=== PATIENT | male | born 1975 | race Caucasian/White ===

== ENCOUNTER → 2019-08-30 17:35 | Outpatient (CLI) | payer MEDICARE, OTHER, SELFPAY ==
--- NOTE | 2019-08-30 | DI.MRI.S_ITS ---
PROCEDURE: MR HEAD/BRAIN WO CON INDICATIONS: Other fatigue TECHNIQUE: Noncontrast axial T1 spin echo, axial T2 fast spin echo, sagittal and axial FLAIR, coronal T2 fast spin echo, axial gradient echo, axial diffusion and ADC through the brain. COMPARISON: [facility], MR, MR BRAIN WO CON, 05/06/2016, 16:57. FINDINGS: Image quality: Excellent. CSF Spaces: Basal cisterns are patent. No extra-axial fluid collections. Ventricles are normal in size and shape. Brain: No intracranial masses or hemorrhage. Juarez/white matter interface is normal. Brainstem appears normal. Diffusion-weighted images demonstrate no acute ischemic insult. No chronic ischemic insults. Normal intravascular flow voids are present. Skull and face: Calvarium has normal marrow signal. Orbits appear normal. Sinuses: Mild bilateral ethmoid sinus mucosal thickening. Moderate left sphenoid sinus because of thickening. Sinuses and mastoids are otherwise clear. IMPRESSION: 1. No acute process. No recent infarct. 2. No explanation for fatigue. 3. Sphenoid and ethmoid sinus mucosal disease. Dictated by: Mavis Franco M.D. on 08/31/2019 at 8:36 Approved by: Mavis Franco M.D. on 08/31/2019 at 8:41
== END ==
PROVIDERS: Referring Provider General Practice; Visit Provider General Practice
DX: R53.83 Other fatigue (principal); J32.8 Other chronic sinusitis; R41.3 Other amnesia; R56.9 Unspecified convulsions; F32.9 Major depressive disorder, single episode, unspecified
CPT/HCPCS: 70551

== ENCOUNTER 2019-10-17 18:15 | Emergency (ER) | payer MEDICARE, OTHER, SELFPAY ==
[2019-10-17 18:28] VITALS: BP 165/99; PULSE 61; RESP 18; TEMP 36.2; O2SAT 97; BMI 30.2
--- NOTE | 2019-10-17 19:06 | DI.RAD.S_ITS ---
PROCEDURE: XR HAND RT MIN 3V INDICATIONS: hand swelling TECHNIQUE: 3 views of the hand(s) acquired. COMPARISON: None. FINDINGS: Bones: No fractures or dislocations. Carpal bones are normally aligned. No suspicious bony lesions. Juxta-articular lucency projecting in the third metacarpal head. First CMC and triscaphe joint degeneration Soft tissues: No suspicious soft tissue calcifications. IMPRESSION: Scattered degenerative changes as above Dictated by: Ricky Justin M.D. on 10/17/2019 at 19:36 Approved by: Ricky Justin M.D. on 10/17/2019 at 19:38
--- NOTE | 2019-10-17 20:03 | ED.EXTPRO ---
HPI - Extremity Problem <Fatou Reed PA-C - Last Filed: 10/17/19 21:10> General Chief complaint: Extremity Problem,Nontraumatic Stated complaint: right hand swelling Time Seen by Provider: 10/17/19 18:33 Source: patient Mode of arrival: Ambulatory Limitations: no limitations History of Present Illness HPI Narrative: This 44-year-old aozfo-fglj-syselxfy male complains of 3 day history of right hand pain and swelling. He states that on was doing yard work including chain sawing, limbing trees, etcetera, which is not unusual for him. He denies any known puncture wounds or other trauma. He states he woke up Friday morning with a swollen hand and unable to make a fist. He has been icing, elevating and taking ibuprofen. He has been using leftover [place] from his surgeries at night to help the pain. He states that these do help temporarily, however pain and swelling have worsened. He is out of pain medicines and was unable to reach his hand surgeons (he has had 6 surgeries on the right hand and was supposed to have a repeat surgery 10 days ago on the ring finger tendon which was canceled due to coronavirus). He states that he has not had any fever. He states he has had minimal redness on the palmar surface around the knuckles, otherwise has not noted any redness or skin changes. He has not noted any weakness in the fingers and states he would have normal range of motion if not for the swelling. He denies any pain in the wrist or other joints. He denies any history of blood clots. He has never been a smoker. He denies any chest pain, dyspnea, or other extremity swelling. Related Data Previous Rx's Medication Instructions Recorded cephalexin [Keflex] 500 mg PO Q6H 7 Days #28 cap 10/17/19 hydrocodone-acetaminophen [[place]] 2 tab PO BEDTIME PRN #8 tab 10/17/19 ibuprofen 800 mg PO Q8H PRN #30 tab 10/17/19 Allergies Allergy/AdvReac Type Severity Reaction Status Date / Time bupropion [From Wellbutrin] Allergy Seizure Verified 10/17/19 18:33 Review of Systems <Fatou Reed PA-C - Last Filed: 10/17/19 21:10> Review of Systems ROS Unobtainable: All systems reviewed & are unremarkable except as noted in HPI and below Patient History <Fatou Reed PA-C - Last Filed: 10/17/19 21:10> Medical History (Updated 10/17/19 @ 20:44 by Fatou Reed PA-C) Herniated intervertebral disc of lumbar spine (Chronic) 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 LUNGS: Clear to auscultation bilaterally. HEART: Rate and rhythm regular without murmur, normal S1 and S2, no S3 or S4. EXTREMITIES: Right hand is moderately edematous, no cyanosis, fingers are warm and pink, radial and ulnar pulses intact, no other extremity edema or proximal edema noted DERMATOLOGIC: There are some dry patches and cracks on the right hand but no visible puncture wound, there are some mildly erythematous calluses on the palmar surface, no erythema, streaking, or warmth to touch MUSCULOSKELETAL: Moderately tender over the metacarpals and proximal fingers. Somewhat reduced flexion secondary to edema. Tender with resisted flexion/extension of the ring finger, however strength is intact in each finger in all macias including flexion, extension, lateral and medial deviation Initial Vital Signs Initial Vital Signs: Vital Signs Temperature 97.1 F L 10/17/19 18:28 Pulse Rate 61 10/17/19 18:28 Respiratory Rate 18 10/17/19 18:28 Blood Pressure 165/99 H 10/17/19 18:28 Pulse Oximetry 97 10/17/19 18:28 <Neftaly Robins DO - Last Filed: 10/18/19 05:25> Initial Vital Signs Initial Vital Signs: Vital Signs Temperature 97.1 F L 10/17/19 18:28 Pulse Rate 61 10/17/19 18:28 Respiratory Rate 18 10/17/19 18:28 Blood Pressure 165/99 H 10/17/19 18:28 Pulse Oximetry 97 10/17/19 18:28 Course <Fatou Reed PA-C - Last Filed: 10/17/19 21:10> Course Additional Information: Patient was put on cephalexin as a precaution although there is no clear sign of puncture wound or infection at this point. He has significant osteoarthritis with extensive surgical history, chronic repetitive use, and this started after yd work, so likely arthritis exacerbation. No evidence of tenosynovitis on exam. He agrees to follow up with his hand specialist in the next day or 2, for with his PCP depending upon availability. He agreed to return if any acutely worsening symptoms, or new symptoms such as spreading redness or fever in the interim. Orders Ordered: Discontinued Medications Hydrocodone Bitart/Acetaminophen (Vicodin 5/325 Prepack) 1 bottle MISC SEEINSTR ONE Stop: 10/17/19 20:22 Last Admin: 10/17/19 21:14 Dose: 1 bottle Documented by: OFELIATONE Cefazolin Sodium (Keflex 250 Mg Prepack) 1 bottle MISC SEEINSTR ONE Stop: 10/17/19 20:22 Last Admin: 10/17/19 21:13 Dose: 1 prepack Documented by: RSTONE Ibuprofen (Advil) 800 mg PO NOW ONE Stop: 10/17/19 20:22 Last Admin: 10/17/19 21:14 Dose: 800 mg Documented by: PATO Vital Signs Vital signs: Vital Signs - 8 hr 10/17/19 18:28 Temperature 97.1 F L Pulse Rate 61 Respiratory Rate 18 Blood Pressure 165/99 H Pulse Oximetry 97 <Neftaly Robins DO - Last Filed: 10/18/19 05:25> Orders Ordered: Discontinued Medications Hydrocodone Bitart/Acetaminophen (Vicodin 5/325 Prepack) 1 bottle MISC SEEINSTR ONE Stop: 10/17/19 20:22 Last Admin: 10/17/19 21:14 Dose: 1 bottle Documented by: RSTONE Cefazolin Sodium (Keflex 250 Mg Prepack) 1 bottle MISC SEEINSTR ONE Stop: 10/17/19 20:22 Last Admin: 10/17/19 21:13 Dose: 1 prepack Documented by: RSTONE Ibuprofen (Advil) 800 mg PO NOW ONE Stop: 10/17/19 20:22 Last Admin: 10/17/19 21:14 Dose: 800 mg Documented by: PATO Vital Signs Vital signs: Vital Signs - 8 hr 10/17/19 18:28 Temperature 97.1 F L Pulse Rate 61 Respiratory Rate 18 Blood Pressure 165/99 H Pulse Oximetry 97 MDM - Extremity (Nontraumatic) <Fatou Reed PA-C - Last Filed: 10/17/19 21:10> Imaging Data hand: Radiologist's Impression: [address] [address] XRay Report Signed Patient: Henry Monterroso RMR#: [id number] : 1975Acct:[id number] Age/Sex: 44 / MDate of Service: 10/17/19 Loc: ED Accession Number: [id number] Procedure: XR hand RT min 3V Ordering Provider: Fatou Reed P.A-C PROCEDURE: XR HAND RT MIN 3V INDICATIONS: hand swelling TECHNIQUE: 3 views of the hand(s) acquired. COMPARISON: None. FINDINGS: Bones: No fractures or dislocations. Carpal bones are normally aligned. No suspicious bony lesions. Juxta-articular lucency projecting in the third metacarpal head. First CMC and triscaphe joint degeneration Soft tissues: No suspicious soft tissue calcifications. IMPRESSION: Scattered degenerative changes as above Dictated by: Ricky Justin M.D. on 10/17/2019 at 19:36 Approved by: Ricky Justin M.D. on 10/17/2019 at 19:38 - Discharge Plan Departure Patient Disposition: Home Clinical Impression: Osteoarthritis of hand, right Qualifiers: Osteoarthritis type: unspecified Qualified Code(s): M19.041 - Primary osteoarthritis, right hand Discharge Date/Time: 10/17/19 21:24 Instructions: DI for Osteoarthritis Activity Restrictions/Additional Instructions: The source of your hand pain and swelling today is not quite clear. 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 There is not any obvious source or signs of infection, however I have prescribed an antibiotic for you to cover for that since you were working outside prior to this starting. Please continue taking the ibuprofen every 8 hours as you have been. Please continue ice and elevation as you have been. Start the antibiotic cephalexin tonight, and take every 6 hours (take 2 of the pills that we gave you which are 250 mg each, per dose, but sure prescription will be for 500 mg so only 1 pill per dose). You can use the hydrocodone/acetaminophen at bedtime as needed as you have been. Get in touch with your hand specialist tomorrow and let them know you were seen in the emergency room and we advised follow up, most specialists are doing follow-up visits for acute issues, and if you are unable to be seen there, please follow-up with your primary care provider in the next day or two. You should return here as we talked about if you have any new symptoms such as acute redness/streaking, new fever, acutely worsening pain or weakness. I have sent your prescriptions to [facility] in [place]. Thank you for your service! Prescriptions: New ibuprofen 800 mg tablet 800 mg PO Q8H PRN (Reason: hand pain) Qty: 30 RF: 0 hydrocodone-acetaminophen [[place]] 5-325 mg tablet 2 tab PO BEDTIME PRN (Reason: acute hand pain/arthritis) Qty: 8 RF: 0 cephalexin [Keflex] 500 mg capsule 500 mg PO Q6H 7 Days Qty: 28 RF: 0 Referrals: [facility] [Provider Group] <Neftaly Robins DO - Last Filed: 10/18/19 05:25> Cosign ED Attending Cosignature Attestation: I was immediately available in the department for consultation. This documentation has been reviewed and I agree with assessment and plan. Supervised by Neftaly Robins DO
[2019-10-17 21:12] VITALS: PULSE 60
[2019-10-17 21:13] VITALS: BP 153/96; PULSE 60; RESP 16; O2SAT 96
[2019-10-17] MEDS: cephALEXin 250 MG PREPACK 1 BOTTLE MISC (21:13)
[2019-10-17] MEDS: HYDROCODONE/ACET 5/325 PREPACK 1 BOTTLE MISC (21:14)
[2019-10-17] MEDS: IBUPROFEN 400 MG TABLET 800 MG PO (21:14)
== END 2019-10-17 21:24 | disposition home or self-care (01) ==
PROVIDERS: Emergency Provider Internal Medicine
DX: M19.041 Primary osteoarthritis, right hand (principal)
CPT/HCPCS: 73130; 99283

== ENCOUNTER → 2021-03-22 16:09 | Outpatient (CLI) | payer MEDICARE, OTHER, SELFPAY ==
--- NOTE | 2021-03-22 | DI.MRI.S_ITS ---
PROCEDURE: MR HEAD/BRAIN WO/W CON INDICATIONS: Migraine, unspecified, not intractable, without st TECHNIQUE: Noncontrast axial T1 spin echo, axial T2 fast spin echo, sagittal and axial FLAIR, coronal T2 fast spin echo, axial gradient echo, axial diffusion and ADC through the brain. After the administration of contrast, axial and coronal 3D VIBE or T1 spin echo with fat saturation through the brain. COMPARISON: [facility], , MR HEAD/BRAIN WO CON, 08/30/2019, 18:00. FINDINGS: Image quality: Excellent. CSF Spaces: Basal cisterns are patent. No extra-axial fluid collections. Ventricles are normal in size and shape. Brain: No midline shift. No intracranial bleeds or masses. No abnormal intracranial enhancement. The brainstem appears normal. Diffusion-weighted images demonstrate no acute ischemic insults. There are punctate white matter hyperintensities predominantly in the left parietal lobe, each measuring 2-3 mm. Normal intravascular flow voids are present. No abnormal enhancement present throughout the exam. Skull and face: Calvarial marrow is normal in signal. Orbits appear normal. Sinuses: Persistent but improved mucosal thickening noted in the left sphenoid and right ethmoid sinuses. IMPRESSION: 1. Nonspecific left parietal white matter hyperintensities probably reflects mild microvascular chronic ischemic change, stable from the prior. Less likely differential possibilities include migrainous vasculopathy, small vessel vasculitis, and sequelae from prior traumatic or inflammatory insults. 2. Persistent but improved sphenoid and ethmoid mucosal sinus disease Approved by: Hal Mathis M.D. on 03/22/2021 at 16:17
== END ==
PROVIDERS: Referring Provider Physician Assistant; Visit Provider Physician Assistant
DX: G43.909 Migraine, unspecified, not intractable, without status migrainosus (principal); J32.8 Other chronic sinusitis
CPT/HCPCS: 70553

== ENCOUNTER → 2022-01-01 13:54 | Outpatient (CLI) | payer MEDICARE, OTHER, SELFPAY ==
--- NOTE | 2022-01-01 | DI.MRI.S_ITS ---
PROCEDURE: MR LUMBAR SPINE WO CON INDICATIONS: BACK PAIN TECHNIQUE: Noncontrast sagittal T1 spin echo and T2 fast echo, sagittal STIR, and T2 fast spin echo through the lumbar spine. In cases with scoliosis, additional coronal T2 fast spin echo may be performed. COMPARISON: [facility], MR, MR LUMBAR SPINE WITHOUT CONTRAST, 07/17/2018, 12:38. FINDINGS: Image quality: Excellent. Alignment and Curvature: There is unchanged trace retrolisthesis of L4 on L5. Bone Marrow: Marrow is of normal overall signal. No acute vertebral body compression fractures. Spinal Cord: Conus medullaris terminates at the L1-2 level. Visualized cord demonstrates normal signal and size. Paraspinous Soft Tissues: No paravertebral masses. Discs: Minimal to mild desiccation is present throughout the lumbar spine. T12-L1: Mild disc bulge without spinal stenosis. Minimal left foraminal narrowing. No interval change. L1-L2: No disc bulge, spinal stenosis or foraminal narrowing. Minimal epidural lipomatosis. No interval change. L2-L3: Minimal disc bulge without spinal stenosis or foraminal narrowing. Minimal epidural lipomatosis. No interval change. L3-L4: Minimal disc bulge without spinal stenosis. Minimal left foraminal narrowing. Minimal epidural lipomatosis. No interval change. L4-L5: Minimal disc bulge with mild spinal stenosis. Mild right foraminal narrowing without interval change. Minimal epidural lipomatosis. L5-S1: Mild disc bulge without spinal stenosis. Moderate left and mild right foraminal narrowing without interval change. IMPRESSION: Multilevel early degenerative changes most notable at L5-S1, unchanged. Dictated by: Gilda Tobar M.D. on 01/01/2022 at 16:44 Approved by: Gilda Tobar M.D. on 01/01/2022 at 16:48
== END ==
DX: M47.816 Spondylosis without myelopathy or radiculopathy, lumbar region (principal); M47.817 Spondylosis without myelopathy or radiculopathy, lumbosacral region; M54.50 Low back pain, unspecified
CPT/HCPCS: 72148

== ENCOUNTER → 2023-11-28 15:38 | Outpatient (CLI) | payer MEDICARE, OTHER, SELFPAY ==
--- NOTE | 2023-11-28 | DI.RAD.S_ITS ---
PROCEDURE: XR CERVICAL SPINE 4V OR 5V INDICATIONS: Spinal stenosis, cervical region TECHNIQUE: 5 views of the cervical spine were acquired. COMPARISON: None. FINDINGS: Bones: There is straightening of normal cervical lordosis. No acute fracture or dislocation. Loss of disc height, degenerative endplate changes and mild bilateral facet hypertrophic changes throughout cervical spine is seen. No suspicious bony lesions. There is decreased range of motion between flexion and extension, with preserved cervical spine alignment. Soft tissues: Prevertebral soft tissues are normal in thickness. IMPRESSION: 1. Kipx-lm-qbzunlbi degenerative disc disease throughout cervical spine. No acute fracture or dislocation. 2. Decreased range of motion on lateral flexion and extension views with preserved cervical spine alignment. Dictated by: Kyler Tucker M.D. on 11/28/2023 at 16:56 Approved by: Kyler Tucker M.D. on 11/28/2023 at 16:56
== END ==
PROVIDERS: PCP Family Medicine; Referring Provider Neurological Surgery; Visit Provider Neurological Surgery
DX: M48.02 Spinal stenosis, cervical region (principal); M50.30 Other cervical disc degeneration, unspecified cervical region
CPT/HCPCS: 72050

== ENCOUNTER → 2023-12-10 10:32 | Outpatient (CLI) | payer MEDICARE, OTHER, SELFPAY ==
--- NOTE | 2023-12-10 10:33 | DI.CT.S_ITS ---
PROCEDURE: CT CERVICAL SPINE WO CON INDICATIONS: Spinal stenosis, cervical region TECHNIQUE: Noncontrast 3 mm thick sections acquired from the skull base to the T4 level. Sagittal and coronal reformats were then constructed. For radiation dose reduction, the following was used: automated exposure control, adjustment of mA and/or kV according to patient size. COMPARISON: None. FINDINGS: Image quality: Excellent. Bones: No fractures or dislocations. Visualized superior ribs are intact. There is straightening of the normal cervical lordosis present. Diffuse disc space narrowing and hypertrophic arthropathy results in at least moderate foraminal stenosis at C3-4, as well as moderate central and foraminal stenosis C5-6 and C6-7 Soft tissues: Prevertebral soft tissues are normal in thickness. No paravertebral hematomas. No apical pneumothoraces. IMPRESSION: Multilevel degenerative disc disease and arthropathy with at least moderate central stenosis C5-6 and C6-7 Approved by: Hal Mathis M.D. on 12/10/2023 at 16:01
== END ==
LOC: CT 10:33
PROVIDERS: PCP Family Medicine; Referring Provider Neurological Surgery; Visit Provider Neurological Surgery
DX: M48.02 Spinal stenosis, cervical region (principal); M47.812 Spondylosis without myelopathy or radiculopathy, cervical region; M50.30 Other cervical disc degeneration, unspecified cervical region
CPT/HCPCS: 72125

== ENCOUNTER → 2023-12-31 11:42 | Outpatient (CLI) | payer MEDICARE, OTHER, SELFPAY ==
--- NOTE | 2023-12-31 11:45 | DI.CT.S_ITS ---
PROCEDURE: CT CERVICAL SPINE WO CON INDICATIONS: Other spondylosis with radiculopathy, cervical reg TECHNIQUE: Noncontrast 3 mm thick sections acquired from the skull base to the T4 level. Sagittal and coronal reformats were then constructed. For radiation dose reduction, the following was used: automated exposure control, adjustment of mA and/or kV according to patient size. COMPARISON: [facility], CR, XR CERVICAL SPINE 4V OR 5V, 11/28/2023, 15:47. [facility], CT, CT CERVICAL SPINE WO CON, 12/10/2023, 11:15. FINDINGS: Image quality: There is artifact associated with the metallic hardware. Bones: No fractures or dislocations. Visualized superior ribs are intact. Interval postoperative change can be seen, with artificial disc placement at the C5-C6 and C6-C7 levels. No findings of hardware failure or hardware loosening are seen. Soft tissues: Prevertebral soft tissues are normal in thickness. No paravertebral hematomas. No apical pneumothoraces. IMPRESSION: Postoperative study within normal limits, with interval placement of artificial discs at the C5-C6 and C6-C7 levels. Dictated by: Tod Messina M.D. on 12/31/2023 at 13:21 Approved by: Tod Messina M.D. on 12/31/2023 at 13:23
== END ==
LOC: CT 11:43
PROVIDERS: PCP Family Medicine; Referring Provider Neurological Surgery; Visit Provider Neurological Surgery
DX: M47.22 Other spondylosis with radiculopathy, cervical region (principal)
CPT/HCPCS: 72125

== ENCOUNTER 2024-02-18 09:36 | Day surgery (SDC) | payer MEDICARE, OTHER, SELFPAY ==
--- NOTE | 2024-02-18 | PATH_ITS ---
[facility] Accession Number: [id number] No. of containers..02 Tissue . 01 Material submitted: . PART A: small bowel - SMALL BOWEL PART B: gastrointestinal site - GASTRIC . 01 Clinical history: . A: R/O CELIAC B: R/O HP . 01 Diagnosis: A. SMALL BOWEL, BIOPSY: Duodenal mucosa with no diagnostic abnormality. Negative for active inflammation, features of sprue, dysplasia, or malignancy. . B. STOMACH, BIOPSY: Gastric antral mucosa with no diagnostic abnormality. No evidence of Helicobacter organisms on H/E stain. Negative for intestinal metaplasia. Negative for dysplasia or malignancy. [facility] 02/20/2024 1054 Local . 01 Electronically signed: . Davy Chavez MD, PhD, Pathologist NPI- [id number] . 01 Gross description: . Part A: SMALL BOWEL: Received in formalin are 2 fragment(s) of richter, soft tissue measuring 0.1 x 0.1 x 0.1 cm to 0.2 x 0.2 x 0.2 cm submitted entirely in 1 cassette(s) Part B: GASTRIC: Received in formalin is 1 fragment(s) of richter, soft tissue measuring 0.4 x 0.2 x 0.2 cm submitted entirely in 1 cassette(s) /EMILIE 02/19/2024 0107 Local . 01 Pathologist provided ICD-10: R10.13, R63.4 . 01 CPT . 465659, 936861 Specimen Comment: A courtesy copy of this report has been sent to [phone] Performed at: [address] [address], [place], [place] [id number] MD Donnell Hernandez MD Phone: [phone]
--- NOTE | 2024-02-18 09:57 | PM.PREOP ---
Pre-operative Note COVID-19 COVID-19 status: Not tested Interval Note History & Physical reviewed/Exam performed by Physician: Yes Changes to H&P: No ASA Class (for procedural sedation): II
--- NOTE | 2024-02-18 09:57 | PM.OP.EC ---
Operative Date/Time/Diagnoses Date of procedure: 02/18/24 Pre-op diagnosis: See indication and findings Procedure & Clinicians Study performed: EGD and colonoscopy Indications: GE reflux with substernal dysphagia, weight loss, personal history of colon polyps Surgeon: Micaela Chou Procedure Notes Procedure in detail: After informed consent was obtained the patient was placed in left lateral decubitus position. The video upper scope was placed into the oropharynx and with the patient's help swallowed into the esophagus. The esophagus stomach and duodenum were carefully examined. On withdrawal, retroflexed view the GE junction was performed. The scope was removed. The patient tolerated procedure well. This patient was then turned to the colonoscope substituted. This induced the rectum slowly advanced cecum. Preparation was good. On slow withdrawal mucosa was carefully examined. The scope was removed. The patient tolerated procedure well. Blood loss none Complications none Sedation mac Findings EGD 1. Completely normal esophagus including upper and lower sphincters and no evidence of inflammation. 2. Mild patchy erythema in the distal stomach biopsies taken to rule out Helicobacter 3. Normal duodenal bulb and sweep biopsies taken to rule out celiac particularly in the face of unexpected weight loss Colonoscopy 1. Normal colonoscopy to cecum Patient should have follow-up colonoscopy in 7 years. Due to his symptoms with dysphagia which do not seem to be from a structural cause I would suggest that he follow up with Dr. Pereira
[2024-02-18 10:21] VITALS: BP 127/79; PULSE 64; RESP 46; TEMP 36.6; O2SAT 96
[2024-02-18] MEDS: LACTATED RINGERS 1,000 ML 42 ML IV (10:23)
[2024-02-18 11:05] VITALS: BP 80/46; PULSE 66; RESP 19; TEMP 36.2; O2SAT 94
[2024-02-18 11:09] VITALS: BP 89/47; PULSE 58; RESP 15; O2SAT 97
[2024-02-18 11:16] VITALS: BP 76/38; PULSE 59; RESP 13; TEMP 36.4; O2SAT 95
[2024-02-18 11:20] VITALS: BP 97/54; PULSE 63; RESP 15; TEMP 36.7; O2SAT 97
== END 2024-02-18 11:45 | disposition home or self-care (01) ==
PROVIDERS: PCP Family Medicine; Referring Provider Internal Medicine Gastroenterology; Visit Provider Internal Medicine Gastroenterology
PROC: 0DJ08ZZ Inspection of Upper Intestinal Tract, Via Natural or Artificial Opening Endoscopic (ICD-10-PCS; CPT 43239; principal; 2024-02-18 10:30)
PROC: 0DJD8ZZ Inspection of Lower Intestinal Tract, Via Natural or Artificial Opening Endoscopic (ICD-10-PCS; CPT 45378; 2024-02-18 10:30)
DX: Z12.11 Encounter for screening for malignant neoplasm of colon (principal); Z86.010 Personal history of colon polyps; R13.10 Dysphagia, unspecified; R63.4 Abnormal weight loss
CPT/HCPCS: 43239; G0105; J2704

== ENCOUNTER → 2024-11-24 16:32 | Outpatient (CLI) | payer MEDICARE, OTHER, SELFPAY ==
--- NOTE | 2024-11-24 | DI.RAD.S_ITS ---
PROCEDURE: XR CERVICAL SPINE 2V OR 3V INDICATIONS: Spondylosis TECHNIQUE: Three views of the cervical spine were acquired. COMPARISON: [facility], CR, XR CERVICAL SPINE 4V OR 5V, 11/28/2023, 15:47. FINDINGS: Cervical spine curvature and alignment: Normal. Bones: There are no osseous abnormalities. Disc spaces: Disc prostheses at C5-6 and C6-7 are anatomically aligned without postsurgical complication. Mild C4-5 degenerative disc disease noted. There is mild C2-3 through C7-T1 degenerative facet is Soft tissues: No soft tissue swelling, calcification or mass. IMPRESSION: C5-6 and C6-7 disc prostheses in anatomic alignment. no postsurgical complication Dictated by: Taiwo Laguerre M.D. on 11/25/2024 at 8:30 Approved by: Taiwo Laguerre M.D. on 11/25/2024 at 8:32
--- NOTE | 2024-11-24 | DI.MRI.S_ITS ---
PROCEDURE: MR CERVICAL SPINE WO CON INDICATIONS: SPONDYLOSIS W/RADICULOPATHY/SPINAL STENOSIS TECHNIQUE: Noncontrast sagittal T1 spin echo and T2 fast spin echo, sagittal STIR, foraminal oblique sagittal T2 fast spin echo, and axial gradient echo or T2 fast spin echo through the cervical spine. COMPARISON: None. FINDINGS: Image quality: Excellent. Alignment and Curvature: There is normal bony alignment. Straightening of the lordotic curvature. No significant change since prior exams. Bone Marrow: Mild odontoid sclerosis. Marrow demonstrates otherwise normal overall signal. Susceptibility artifact present from C5 through C7 due to disc spacers. Spinal Cord: Susceptibility artifact alters cord signal at the C6 level. Visualized spinal cord otherwise has normal signal. No suspicious cord signal. No cerebellar tonsillar herniation. Paraspinous Soft Tissues: No paravertebral masses. Prevertebral soft tissues are normal in thickness. C2-C3: Normal disc. Mild left uncovertebral joint hypertrophy causing minor left foraminal stenosis. C3-C4: Minor disc height loss and mild circumferential disc bulge. Uncovertebral joint hypertrophy present bilaterally. Mild to moderate bilateral foraminal stenosis. Mild facet arthropathy. C4-C5: Mild disc height loss and mild circumferential disc osteophyte. Uncovertebral joint hypertrophy and facet arthropathy causes moderate right and mild left foraminal stenosis. No significant central canal stenosis. C5-C6: Postoperative changes of disc spacer placement. Mild facet arthropathy. Artifact and or disc osteophyte severely narrows the right neural foramen and moderately narrows the left. There is effacement of anterior CSF, probably due to artifact, and slight flattening of the cord shape. C6-C7: Postoperative changes of disc spacer placement. Artifact and/or disc osteophyte effaces the anterior CSF and appears to cause moderate to severe bilateral foraminal narrowing. C7-T1: Normal appearance. IMPRESSION: Postoperative changes at the C5-6 and C6-7 disc levels with artifact, probably accentuating bilateral foraminal stenosis and mild central canal narrowing. Correlation with level of radiculopathy is recommended. [id number] bilateral foraminal stenosis in the upper cervical spine as described. Correlate with level of radiculopathy. Dictated by: Denisse Mckeon M.D. on 11/25/2024 at 11:04 Approved by: Denisse Mckeon M.D. on 11/25/2024 at 11:22
== END ==
LOC: MRI 16:33
PROVIDERS: PCP Family Medicine; Referring Provider Neurological Surgery; Visit Provider Neurological Surgery
DX: M47.22 Other spondylosis with radiculopathy, cervical region (principal); M48.02 Spinal stenosis, cervical region; M50.11 Cervical disc disorder with radiculopathy, high cervical region
CPT/HCPCS: 72040; 72141

== ENCOUNTER → 2025-06-03 07:33 | Outpatient (CLI) | payer MEDICARE, OTHER, SELFPAY ==
--- NOTE | 2025-06-03 | DI.US.S_ITS ---
PROCEDURE: US PERIPH VENOUS LOW EXTREM RT INDICATIONS: POST-OP EDEMA TECHNIQUE: Real-time imaging, as well as color and pulse Doppler interrogation, were performed of the lower extremity deep veins from the inguinal ligament to the popliteal fossa, with documentation of the visualized calf veins. COMPARISON: None. FINDINGS: The common femoral, femoral, popliteal, and the visualized calf veins are normally compressible, and free of intraluminal thrombus. Color and pulse Doppler demonstrate normal phasic intraluminal flow. There is normal augmentation response to distal compression maneuver. IMPRESSION: No findings of lower extremity deep venous thrombosis. Dictated by: Keyur Ramos M.D. on 06/03/2025 at 8:52 Approved by: Keyur Ramos M.D. on 06/03/2025 at 8:52
--- NOTE | 2025-06-03 07:35 | DI.US.S_ITS ---
PROCEDURE: US ABDOMEN LIMITED INDICATIONS: Epigastric pain; ?cholecystitis TECHNIQUE: Real-time scanning was performed of the abdominal and retroperitoneal organs, with image documentation. COMPARISON: None. FINDINGS: Liver: Liver is normal in size and homogeneous in echotexture. Gallbladder: No gallstones. No wall thickening. No pericholecystic edema. Negative sonographic Aguilar's sign. Biliary ducts: Intrahepatic bile ducts are non-dilated. Extrahepatic bile duct caliber measures 4.1 mm. Normal is 6-7 mm or less in diameter, or 10 mm or less post-cholecystectomy. Pancreas: Not well seen. Miscellaneous: No free abdominal fluid. IMPRESSION: No visualized gallstones or gallbladder wall thickening. Dictated by: Gilda Tobar M.D. on 06/03/2025 at 16:42 Approved by: Gilda Tobar M.D. on 06/03/2025 at 16:43
--- NOTE | 2025-06-03 07:37 | DI.CT.S_ITS ---
PROCEDURE: CT LE RT WO CON INDICATIONS: SWELLING POST-KNEE SURGERY TECHNIQUE: Noncontrast 1-1.5 mm axial sections acquired from the mid-patella to the proximal tibia, with coronal and sagittal reformats. COMPARISON: [facility], CR, XR KNEE ARTHRITIC SERIES RT, 05/20/2025, 15:04. FINDINGS: Posterior stabilized cemented total knee arthroplasty with patellar resurfacing. No fracture or osteolysis. Small effusion with synovial thickening. Subcutaneous fluid along the anterior knee and skin thickening. No discrete fluid collection. IMPRESSION: Focal swelling along the anterior knee, effusion and synovial thickening likely representing inflammation which could be due to infection in the appropriate clinical setting. Dictated by: Garth Singh M.D. on 06/03/2025 at 9:59 Approved by: Garth Singh M.D. on 06/03/2025 at 10:05
== END ==
LOC: US 07:34
PROVIDERS: PCP Family Medicine; Referring Provider Family Medicine; Visit Provider Surgery
DX: R10.13 Epigastric pain (principal); M25.461 Effusion, right knee; Z96.651 Presence of right artificial knee joint
CPT/HCPCS: 73700; 76705; 93971